=== PATIENT | female | born 2000 | race Caucasian/White ===

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

== ENCOUNTER 2020-02-14 16:20 | Emergency (ER) | payer BC, OTHER ==
[2020-02-14 16:49] LABS: Bilirubin Large (Negative); Blood, Urine Large (Negative); Glucose, Urine (Dipstick) Negative (Negative); Ketone, Urine 15 mg/dL (Negative); Leukocyte Large (Negative); Nitrite Positive (Negative); Protein, Urine (Dipstick) > or equal to 300 mg/dL (Neg-Trace); pH, Urine 5.5 (5.0-9.0)
[2020-02-14 16:57] LABS: Clarity Cloudy (Clear); Specific Gravity, Urine 1.031 (1.002-1.036)
[2020-02-14 16:58] LABS: Bacteria/HPF 1+ HPF (None Seen); Other Microscopic Description PROTEIN MOLECULES PR; RBC/HPF Greater than 50 HPF (0-3); WBC/HPF 21-50 HPF (0-3); Yeast-Budding 2+ HPF (None Seen)
== END 2020-02-14 17:28 | disposition home or self-care (01) ==
LOC: BURERS 16:20
DX: O86.20 Urinary tract infection following delivery, unspecified (principal)
CPT/HCPCS: 81003; 81015; 87077; 87086; 87186; 99283

== ENCOUNTER 2023-10-24 11:02 | Outpatient (CLI) | payer BC, OTHER | END 2023-10-24 11:03 | disposition home or self-care (01) | LOC: BURRAD 11:02 | PROVIDERS: ATTEND Family Medicine | DX: M25.512 Pain in left shoulder (principal) ==